=== PATIENT | male | born 1945 | race Caucasian/White ===

== ENCOUNTER 2017-05-17 10:19 | Emergency (ER) | payer MEDICARE, MEDICAID ==
[~2017-05-17] VITALS: Ht 175.3 cm; Wt 74.1 kg
[~2017-05-17 10:19] MED LIST: DIAZ10TA PO; MULT-1179 PO
[2017-05-17] MEDS ORDERED: VALA10002 PO (11:10)
[2017-05-17] MEDS ORDERED: PRED10TA PO (11:10)
[2017-05-17 11:22] VITALS: BP 173/85
== END 2017-05-17 11:25 | disposition home or self-care (01) ==
LOC: ER 10:19
DX: B02.9 Zoster without complications (principal); I10 Essential (primary) hypertension; F12.10 Cannabis abuse, uncomplicated; F17.200 Nicotine dependence, unspecified, uncomplicated; Z79.899 Other long term (current) drug therapy
CPT/HCPCS: 99283

== ENCOUNTER 2025-02-14 14:19 | Day surgery (SDC) | payer MEDICARE, MEDICAID ==
[2025-02-11 10:50] LABS: MEAN PLATELET VOLUME 9.0 FL (7.4-10.4); RED CELL DISTRIBUTION WIDTH 15.3 % (11.5-14.5)
[2025-02-11 11:02] LABS: APTT 28 SECONDS (22-32); INR 1.1 INR
[2025-02-11 11:04] LABS: CHOL/HDL RATIO 3.2 (0.00-4.99); CREATININE 1.05 MG/DL (0.60-1.10); LDL CHOLESTEROL 68 MG/DL (50-100); TOTAL CARBON DIOXIDE 28.9 MMOL/L (24-32); eGFR 68 ML/MIN
[~2025-02-14] VITALS: Ht 175.3 cm; Wt 61.4 kg
[2025-02-14] VITALS (7 sets, daily range): BP systolic 94–110; BP diastolic 58–65; PULSE 70–80; RESP 14–16; TEMP 97.9; O2SAT 98
--- NOTE | 2025-02-14 14:53 | ELECTROCARDIOGRAPH REPORT ---
[facility] Test Date: 2025-02-14 Test Time: 14:50:13 Pat Name: ALICIA BRAGG Department: [facility] Patient ID: [facility]-[id number] Room: Gender: M Clinic Office Manager: TANNER : 1945 Requested By: MARISELA SILVA Order Number: [id number] Reading MD: Dr. Christian Talavera Measurements Intervals [place] Rate: 71 P: 85 CT: 202 QRS: 58 QRSD: 166 T: -60 QT: 487 QTc: 530 Interpretive Statements Sinus rhythm Multiple ventricular premature complexes Left bundle branch block pattern with diffuse ST-T changes Electronically Signed On 02-15-2025 8:50:[address] Christian Talavera Please click the below link to view image of tracing.
[2025-02-14] MEDS ORDERED: SACUBITRIL-VALSARTAN PO (15:04)
[2025-02-14] MEDS ORDERED: ATOR10TA70 PO (15:04)
[2025-02-14] MEDS ORDERED: ASPI-1265 PO (15:04)
[2025-02-14] MEDS ORDERED: SPIR25TA5 PO (15:04)
[2025-02-14] MEDS ORDERED: METO-384 PO (15:04)
[2025-02-14] MEDS ORDERED: EMPA10TA PO (15:04)
[2025-02-14] MEDS ORDERED: CARV3.1244 PO (15:04)
[2025-02-14] MEDS ORDERED: FURO20TA4 PO (15:04)
[2025-02-14 18:01] LABS: ISTAT HGB ART 9.5 g/dl (14.0-17.9); ISTAT Hct ART 28 %PCV (42-52); ISTAT O2 SATURATION ARTERIAL 94 % (95-98); ISTAT SOURCE ART
--- NOTE | 2025-02-14 18:23 | CARDIAC CATH REPORT ---
Cardiac Cath Report Providers to CC CC: SHANE SILVA MD Procedure Comments: 1. Right Heart Catheterization 2. Left Heart Catheterization 3. Right Femoral vein access 4. Right Radial artery access Brief History/Indications: 79yo man with HTN, HLD, HFrEF, , EtOH abuse referred for evaluation given depressed LVEF and concerns of LF-LG . Techniques: After informed consent was obtained, the patient was brought to the cardiac catheterization laboratory and prepped and draped in usual sterile fashion for left heart catheterization and other procedures mentioned above. The right wrist and right groin were anesthetized with 1% Lidocaine. The right femoral vein was accessed via Seldinger technique after which a 6Fr sheath was placed. The right radial artery accessed via the Seldinger technique after which a 6Fr sheath was placed. The [place] was advanced via the right femoral sheath to the right atrium, the right ventricle, the pulmonary artery, and wedge position. Through the 6Fr right radial sheath, a TIG was used to engage the left coronary artery and the right coronary artery. The TIG was then used to cross into the left ventricle at which time it was exchanged for a [place] Catheter and serial measurements were performed. At the conclusion of the case the sheath was rem dillon and hemostasis obtained with a VascBand for the radial sheath and manual compression for the brachial sheath. Findings Findings: HEMODYNAMICS: RA: 2 mmHg RV: 33/-, RVEDP 4 mmHg PA: 27/7, mPAP 15 mmHg PCWP: 6 mmHg (V-waves to 10mmHg) TP mmHg DP mmHg PA Sat: 66% Ao Sat: 94% CO/CI ([place]): 5.87/3.37 PVR: 1.5 IVY Baseline: LV: 89/-, LVEDP 1 mmHg Ao: 69/35, MAP 48 mmHg VINNY: 1.9cm2 MmmHg CORONARY ARTERIES: Rt Dominant LMCA: Luminal Irregularities LAD: Luminal Irregularities D1: Luminal Irregularities D2: Luminal Irregularities D3: Luminal Irregularities LCx: Luminal Irregularities OM1: Luminal Irregularities RCA: Luminal Irregularities PDA: Luminal Irregularities PL: Luminal Irregularities Results Results: 1. No significant obstructive CAD 2. VINNY of 1.9cm2 with a Mean Gradient of 15mmHg. Given such, did not proceed with Dobutamine study 3. RRA and RFV access, closed with VascBand and manual compression RECOMMENDATIONS: 1. Cont uptitration of max-tolerated GDMT MARISELA SILVA MD Feb 14, 2025 18:23
[2025-02-15 07:04] LABS: ISTAT HGB MIX 9.9 g/dl (14.0-17.9); ISTAT Hct MIX 29 %PCV (42-52); ISTAT O2 SATURATION MIX VENOUS 66 % (60-80); ISTAT SOURCE VEN
== END 2025-02-14 20:15 | disposition home or self-care (01) ==
LOC: SSTAY O 14:19
PROVIDERS: ATTEND Student in an Organized Health Care Education/Training Program
DX: I35.0 Nonrheumatic aortic (valve) stenosis (principal); I49.3 Ventricular premature depolarization; I44.7 Left bundle-branch block, unspecified; I11.0 Hypertensive heart disease with heart failure; I50.22 Chronic systolic (congestive) heart failure; E78.00 Pure hypercholesterolemia, unspecified; J44.9 Chronic obstructive pulmonary disease, unspecified; I42.0 Dilated cardiomyopathy; Z79.82 Long term (current) use of aspirin; Z79.899 Other long term (current) drug therapy; Z88.0 Allergy status to penicillin
CPT/HCPCS: 36415; 80048; 80061; 82803; 85014; 85025; 85610; 85730; 93005; 93460; 99152; 99153; A6258; C1751; C1887; C1894; J7030; Q0163; Z7610; 76937